=== PATIENT | female | born 1975 | race Two or more races ===

== ENCOUNTER 2022-03-31 06:27 | Day surgery (SDC) | payer OTHER ==
[~2022-03-31] VITALS: Ht 167.6 cm; Wt 81.6 kg
[~2022-03-31 06:27] MED LIST: BISOPROLOL FUMAR5 MG PO; CRESTOR5 MG PO; D3 + K2 DOTS 11 EACH PO
[2022-03-31] MEDS ORDERED: PERCOCET 5-3251 EACH PO (12:28)
== END 2022-03-31 15:15 | disposition home or self-care (01) ==
LOC: CIR.AMB 06:27
PROVIDERS: ATTEND Surgery
DX: D35.1 Benign neoplasm of parathyroid gland (principal); E21.0 Primary hyperparathyroidism; Z20.822 Contact with and (suspected) exposure to COVID-19; I10 Essential (primary) hypertension; I34.1 Nonrheumatic mitral (valve) prolapse; Z86.16 Personal history of COVID-19; K21.9 Gastro-esophageal reflux disease without esophagitis; E66.9 Obesity, unspecified